=== PATIENT | male | born 1950 | race Hispanic/Latino ===

== ENCOUNTER → 2017-04-09 | Day surgery (SDC) | payer BC ==
[~2017-04-09] MED LIST: CENTRUM SILVER1 EAC3 PO; DIOVAN HCT 3201 EACH PO; FENTANYL CITRATE/PF 100MCG/2 ML INJ ONE; HYOSCYAMINE SULFATE 0.5 MG/ML AMP ONE; LIDOCAINE HCL 2% LOCAL INJ 5 ML SDV VIAL INJ ONE; MIDAZOLAM HCL 2 MG/2 ML VIAL ONE; PROPOFOL IV EMULSION 10 MG/ML 50 ML VIAL ONE
--- NOTE | 2017-04-09 13:12 | Operative Report ---
DATE OF PROCEDURE: April 09, 2017 REFERRING PHYSICIAN: Dr. Viktor Hernandez. PROCEDURE PERFORMED: Colonoscopy and polypectomy. INDICATIONS FOR COLONOSCOPY: Colorectal cancer screening. Personal history of colon polyps. MEDICATION: Patient was done under MAC. Please see anesthesiologist's note. PROCEDURE: With the patient in the left lateral decubitus position, the flexible fiberoptic Olympus colonoscope was inserted into the rectum with ease and advanced all the way to the cecum. The scope was then withdrawn slowly. The mucosa overlying the cecum appeared to be within normal limits. One polyp was hot biopsied, and 2 polyps were snared from the ascending colon. Two polyps were hot biopsied, and 2 polyps were snared from the transverse colon. Two polyps was snared, and 1 polyp was hot biopsied from the descending colon. One polyp was snared from the rectum. Some diverticular disease was noted in the sigmoid colon. The scope was then retroflexed into the distal rectum, and moderate-sized internal hemorrhoids were noted, none of which was actively bleeding. The scope was then straightened out. The rectosigmoid area as well as the distal rectal area were decompressed. The scope was subsequently withdrawn. Patient tolerated the procedure well. IMPRESSION: 1. Ascending colon polyps times 3, 2 snared, 1 hot biopsied. 1. Transverse colon polyps times 4, 2 snared, 2 hot biopsied. 2. Descending colon polyps times 3, 2 snared, 1 hot biopsied. 3. Diverticulosis. 4. Rectal polyp snared times 1. 5. Internal hemorrhoids, none actively bleeding. PLAN: Follow up histology. Initiate high-fiber low-fat diet. Initiate high-fiber supplement. Patient will need a followup colonoscopy in 2 to 3 years. Job#: [id number] EV cc:VIKTOR HERNANDEZ MD
== END | disposition home or self-care (01) ==
LOC: OR 09:10
PROVIDERS: ATTEND Internal Medicine Gastroenterology
DX: Z12.11 Encounter for screening for malignant neoplasm of colon (principal); D12.2 Benign neoplasm of ascending colon; D12.3 Benign neoplasm of transverse colon; D12.4 Benign neoplasm of descending colon; D12.8 Benign neoplasm of rectum; K57.30 Diverticulosis of large intestine without perforation or abscess without bleeding; K64.8 Other hemorrhoids; I10 Essential (primary) hypertension; Z01.810 Encounter for preprocedural cardiovascular examination; Z68.35 Body mass index [BMI] 35.0-35.9, adult
CPT/HCPCS: 45384; 45385; 93005; J1980; J2001; J2250

== ENCOUNTER 2024-11-26 02:39 | Observation (INO) | payer BC ==
[~2024-11-26] VITALS: Ht 167.6 cm; Wt 77.1 kg
[2024-11-26] VITALS (7 sets, daily range): BP systolic 137–174; BP diastolic 63–90; PULSE 62–88; RESP 18–20; TEMP 97.7–98.9; O2SAT 98–100
[~2024-11-26 02:39] MED LIST changes: +CLARITIN10 MG PO; -FENTANYL CITRATE/PF 100MCG/2 ML INJ ONE; -HYOSCYAMINE SULFATE 0.5 MG/ML AMP ONE; -LIDOCAINE HCL 2% LOCAL INJ 5 ML SDV VIAL INJ ONE; +LOSARTAN-HCTZ1 EAC1 PO; -MIDAZOLAM HCL 2 MG/2 ML VIAL ONE; -PROPOFOL IV EMULSION 10 MG/ML 50 ML VIAL ONE; +REVATIO20 MG PO
[2024-11-26 03:24] LABS: BASOPHILS % 0.8 % (0.0-1.0); EOSINOPHILS % 2.1 % (0.0-6.0); LYMPHOCYTES % 41.0 % (18.0-39.1); MONOCYTES % 7.9 % (4.4-11.3); NEUTROPHILS % 47.8 % (38.7-80.0); RED CELL DISTRIBUTION WIDTH 13.2 % (11.7-14.4)
[2024-11-26 03:48] LABS: EST GLOMERULAR FILTRATION RATE 87.0 ML/MIN (>=60)
[2024-11-26] MEDS ORDERED: ONDANSETRON HCL INJ 2MG/ML 2ML 2 MG/ML VIAL IV PRN (05:00)
[2024-11-26] MEDS ORDERED: Morphine 4mg INJECTION 4 MG/ML INJ IV PRN (05:00)
[2024-11-26] MEDS: ASPIRIN 81 MG CHEW TAB PO ONE (07:55)
[2024-11-26] MEDS: LOSARTAN POTASSIUM 100 MG TAB PO SCH (08:31)
[2024-11-26] MEDS: ASPIRIN 81 MG ENTERIC COATED PO SCH (08:31)
[2024-11-26 09:09] LABS: CHOL/HDL RATIO 3.7 (3.9-4.7); LDL CHOLESTEROL 81.0 MG/DL (60-130)
== END 2024-11-26 13:15 | disposition home or self-care (01) ==
LOC: ER 04:08 → ERHOLD 04:56 → MED/SURG2 05:40
PROVIDERS: ADMIT Internal Medicine; ATTEND Internal Medicine
DX: R07.9 Chest pain, unspecified (principal); R06.00 Dyspnea, unspecified; I10 Essential (primary) hypertension; I35.0 Nonrheumatic aortic (valve) stenosis
CPT/HCPCS: 36415; 71045; 80053; 80061; 82550; 83880; 84484; 85025; 93005; 93017; 93306; 99284; G0378